=== PATIENT | male | born 1990 | race African-American/Black ===

== ENCOUNTER 2018-02-10 14:48 | Emergency (ER) | payer MEDICAID ==
[~2018-02-10] VITALS: Ht 175.3 cm; Wt 65.0 kg
[~2018-02-10 14:48] MED LIST: NO MEDS
[2018-02-10] MEDS ORDERED: KETOROLAC TROMETHAMINE 60 MG/2 ML VIAL IM ONE (16:30)
[2018-02-10 16:57] VITALS: BP 129/64
== END 2018-02-10 17:06 | disposition home or self-care (01) ==
LOC: EMS 14:49
DX: S43.402A Unspecified sprain of left shoulder joint, initial encounter (principal); V49.9XXA Car occupant (driver) (passenger) injured in unspecified traffic accident, initial encounter; Y93.89 Activity, other specified; Y92.89 Other specified places as the place of occurrence of the external cause; Y99.8 Other external cause status
CPT/HCPCS: 29105; 73030; 96372; 99284; J1885